=== PATIENT | female | born 1960 | race Caucasian/White ===

== ENCOUNTER 2019-07-06 20:08 | Observation (INO) ==
[2019-07-06 21:07] LABS: Basophils # 0.1 K/mcL (0.0-0.2); Basophils % 0.7 %; Eosinophils # 0.1 K/mcL (0.0-0.6); Eosinophils % 0.4 %; Hematocrit 42.2 % (35.3-44.9); Hemoglobin 14.2 g/dL (11.5-15.4); Immature Granulocytes % 0.4 % (0-4); Lymphocytes # 1.9 K/mcL (0.6-4.6); Lymphocytes % 15.2 %; Mean Corpuscular HGB Conc 33.6 g/dL (31.6-35.5); Mean Corpuscular Volume 86.1 fL (83.0-100.0); Mean Platelet Volume 9.7 fL (9.4-12.4); Monocytes # 1.2 K/mcL (0.0-1.3); Monocytes % 9.9 %; Neutrophils # 9.1 K/mcL (1.6-8.9); Platelet Count 239 K/mcL (140-400); Segmented Neutrophils % 73.4 %; White Blood Count 12.4 K/mcL (4.3-11.1)
[2019-07-06] MEDS ORDERED: Isovue-370 500 ML BOTTLE IVP ONE (21:26)
[2019-07-06 21:33] LABS: BUN/Creatinine Ratio 14 (6-26); Blood Urea Nitrogen 11 mg/dL (8-23); Calcium 9.1 mg/dL (8.6-10.3); Carbon Dioxide 24 mEq/L (23-29); Chloride 99 mEq/L (98-107); Glucose 155 mg/dL (70-105); Osmolality,Calculated 281 (280-300); Potassium 3.4 mEq/L (3.5-5.1); Sodium 134 mEq/L (136-145); Troponin I < 0.03 ng/mL (< 0.04); eGFR For African Americans > 60 (> 60); eGFR For Non-African Americans > 60 (> 60)
[2019-07-06] MEDS ORDERED: Ondansetron 4 MG/2 ML VIAL IVP ONE (22:42)
[2019-07-06] MEDS ORDERED: Morphine Sulfate 2 MG/ML SYRINGE IVP ONE (22:42)
[2019-07-06] MEDS ORDERED: *HR* Heparin 5,000 UNIT/ML VIAL IVP PRN (22:55)
[2019-07-06] MEDS ORDERED: *HR* Heparin 5,000 UNIT/ML VIAL IVP ONE (22:55)
[2019-07-06] MEDS: Heparin 25,000 UNIT/250 ML D5W 25,000 UNIT/250 ML IV.SOLN IVC SCH (23:16)
[2019-07-06 23:31] LABS: Heparin anti-factor XA UFH < 0.04 IU/mL (0.30-0.70); INR 1.1; Prothrombin Time 12.8 Seconds (9.4-12.1)
[2019-07-06 23:42] LABS: Hematocrit 41.5 % (35.3-44.9); Hemoglobin 14.1 g/dL (11.5-15.4); Mean Corpuscular Hemoglobin 28.9 pg (28.0-33.3); Mean Platelet Volume 9.5 fL (9.4-12.4); Platelet Count 226 K/mcL (140-400); Red Blood Count 4.88 M/mcL (3.82-4.97); White Blood Count 12.2 K/mcL (4.3-11.1)
[2019-07-06] MEDS ORDERED: Naloxone 0.4 MG/ML INJ IVP PRN (23:42)
[2019-07-07 05:43] LABS: Basophils % 0.2 %; Eosinophils # 0.1 K/mcL (0.0-0.6); Eosinophils % 0.5 %; Hematocrit 42.7 % (35.3-44.9); Immature Granulocytes % 0.4 % (0-4); Lymphocytes # 1.4 K/mcL (0.6-4.6); Lymphocytes % 11.7 %; Mean Corpuscular HGB Conc 32.8 g/dL (31.6-35.5); Mean Corpuscular Volume 88.4 fL (83.0-100.0); Mean Platelet Volume 9.6 fL (9.4-12.4); Monocytes # 1.1 K/mcL (0.0-1.3); Monocytes % 8.8 %; Neutrophils # 9.7 K/mcL (1.6-8.9); Platelet Count 207 K/mcL (140-400); Red Blood Count 4.83 M/mcL (3.82-4.97); Red Cell Distribution Width 12.9 % (11.5-14.5); Segmented Neutrophils % 78.4 %; White Blood Count 12.3 K/mcL (4.3-11.1)
[2019-07-07] MEDS: *HR* Heparin 5,000 UNIT/ML VIAL IVP PRN ×2 (05:58→17:48)
[2019-07-07 06:04] LABS: BUN/Creatinine Ratio 14 (6-26); Blood Urea Nitrogen 10 mg/dL (8-23); Calcium 9.2 mg/dL (8.6-10.3); Carbon Dioxide 25 mEq/L (23-29); Chloride 99 mEq/L (98-107); Glucose 106 mg/dL (70-105); Osmolality,Calculated 281 (280-300); Potassium 3.8 mEq/L (3.5-5.1); Sodium 136 mEq/L (136-145); eGFR For African Americans > 60 (> 60); eGFR For Non-African Americans > 60 (> 60)
[2019-07-07] MEDS: *HR* OxyCODONE/APAP 5/325 TABLET PO PRN ×3 (07:12→22:59)
[2019-07-07] MEDS ORDERED: 0.9 % Sodium Chloride 1,000 ML IVC ONE (10:35)
[2019-07-07] MEDS: 0.9 % Sodium Chloride 1,000 ML IVC SCH ×2 (14:31→22:59)
[2019-07-08 00:57] LABS: Basophils # 0.1 K/mcL (0.0-0.2); Basophils % 0.8 %; Eosinophils # 0.5 K/mcL (0.0-0.6); Hematocrit 37.8 % (35.3-44.9); Immature Granulocytes % 0.2 % (0-4); Lymphocytes # 1.8 K/mcL (0.6-4.6); Lymphocytes % 26.7 %; Mean Corpuscular HGB Conc 31.7 g/dL (31.6-35.5); Mean Corpuscular Hemoglobin 28.7 pg (28.0-33.3); Mean Corpuscular Volume 90.4 fL (83.0-100.0); Mean Platelet Volume 10.1 fL (9.4-12.4); Monocytes # 0.9 K/mcL (0.0-1.3); Monocytes % 13.1 %; Neutrophils # 3.4 K/mcL (1.6-8.9); Platelet Count 189 K/mcL (140-400); Red Blood Count 4.18 M/mcL (3.82-4.97); Segmented Neutrophils % 52.2 %; White Blood Count 6.6 K/mcL (4.3-11.1)
[2019-07-08 01:16] LABS: BUN/Creatinine Ratio 14 (6-26); Blood Urea Nitrogen 10 mg/dL (8-23); Calcium 8.5 mg/dL (8.6-10.3); Carbon Dioxide 26 mEq/L (23-29); Chloride 106 mEq/L (98-107); Glucose 96 mg/dL (70-105); Osmolality,Calculated 285 (280-300); Potassium 3.6 mEq/L (3.5-5.1); Sodium 138 mEq/L (136-145); eGFR For African Americans > 60 (> 60); eGFR For Non-African Americans > 60 (> 60)
[2019-07-08] MEDS: *HR* Heparin 5,000 UNIT/ML VIAL IVP PRN ×2 (01:37→06:53)
[2019-07-08] MEDS: Heparin 25,000 UNIT/250 ML D5W 25,000 UNIT/250 ML IV.SOLN IVC SCH (02:48)
[2019-07-08] MEDS ORDERED: Ondansetron ODT 4 MG TAB.RAPDIS SL PRN (05:09)
[2019-07-08] MEDS: *HR* OxyCODONE/APAP 5/325 TABLET PO PRN (06:35)
[2019-07-08] MEDS: 0.9 % Sodium Chloride 1,000 ML IVC SCH (08:34)
[2019-07-08] MEDS ORDERED: *HR* Rivaroxaban 15 MG TABLET PO SCH (09:00)
[2019-07-08 09:17] VITALS: BP 98/57
[2019-07-08] MEDS ORDERED: FLU Vac QV 19-20 (6Month+)/PF 0.5 ML SYRINGE IM ONE (09:36)
== END 2019-07-08 11:32 | disposition home or self-care (01) ==
LOC: 2ANU 20:08 → EMEROOARM 20:08 → 2ANU 23:35
PROVIDERS: ADMIT Student in an Organized Health Care Education/Training Program; ATTEND Student in an Organized Health Care Education/Training Program

== ENCOUNTER 2019-07-12 17:02 | Inpatient (IN) ==
[2019-07-12 18:14] LABS: Hematocrit 39.2 % (35.3-44.9); Hemoglobin 12.7 g/dL (11.5-15.4); Mean Corpuscular HGB Conc 32.4 g/dL (31.6-35.5); Mean Corpuscular Volume 86.3 fL (83.0-100.0); Mean Platelet Volume 8.7 fL (9.4-12.4); Platelet Count 306 K/mcL (140-400); Red Blood Count 4.54 M/mcL (3.82-4.97); Red Cell Distribution Width 12.7 % (11.5-14.5); White Blood Count 8.3 K/mcL (4.3-11.1)
[2019-07-12 18:29] LABS: BUN/Creatinine Ratio 15 (6-26); Blood Urea Nitrogen 10 mg/dL (8-23); Calcium 9.2 mg/dL (8.6-10.3); Carbon Dioxide 28 mEq/L (23-29); Chloride 101 mEq/L (98-107); Glucose 90 mg/dL (70-105); Osmolality,Calculated 285 (280-300); Potassium 3.6 mEq/L (3.5-5.1); Sodium 138 mEq/L (136-145); eGFR For African Americans > 60 (> 60); eGFR For Non-African Americans > 60 (> 60)
[2019-07-12] MEDS ORDERED: Gadolinium Contrast Agent (WT Based) IV PRN (18:50)
[2019-07-12 19:05] LABS: Bilirubin,Urine Negative (Negative); Blood,Urine Negative (Negative); Clarity,Urine Cloudy (Clear); Glucose,Urine (UA) Normal (Normal); Ketones,Urine Negative (Negative); Leukocyte Esterase,Urine Large (Negative); Nitrite,Urine Positive (Negative); Protein,Urine Negative (Neg-Trace); Specific Gravity,Urine 1.018 (1.010-1.025); Urobilinogen,Urine Normal (Normal)
[2019-07-12 19:07] LABS: Bacteria,Urine Many per hpf (None-Few); Hyaline Casts,Urine None Seen per lpf (None-Few); RBC,Urine 0-3 per hpf (0-3)
[2019-07-12 19:12] LABS: Color,Urine Yellow (Yellow)
[2019-07-12 19:41] LABS: Squamous Epithelial Cell,Urine Few per lpf (None-Few)
[2019-07-12] MEDS ORDERED: 0.9 % Sodium Chloride 1,000 ML IVC ONE (21:06)
[2019-07-12] MEDS ORDERED: Ondansetron 4 MG/2 ML VIAL IVP ONE (21:06)
[2019-07-12] MEDS ORDERED: *HR* HYDROmorphone 2 MG/ML SYRINGE IVP ONE (21:11)
[2019-07-12] MEDS ORDERED: *HR* HYDROmorphone (PF) 1 MG/ML SYRINGE IVP ONE (21:30)
[2019-07-12] MEDS ORDERED: cefTRIAXone 1,000 MG in Water for inj. (sterile) 10 ML IVPB STA (23:17)
[2019-07-13] MEDS ORDERED: *HR* HYDROmorphone (PF) 1 MG/ML SYRINGE IVP ONE (01:42)
[2019-07-13] MEDS ORDERED: Ketamine *HR* 15 MG in 0.9 % Sodium Chloride 100 ML IVPB ONE (01:43)
[2019-07-13] MEDS ORDERED: Ondansetron 4 MG/2 ML VIAL IVP STA (01:44)
[2019-07-13] MEDS ORDERED: Ondansetron 4 MG/2 ML VIAL IVP PRN (03:29)
[2019-07-13] MEDS ORDERED: Acetaminophen 325 MG TABLET PO PRN (03:29)
[2019-07-13] MEDS ORDERED: Naloxone 0.4 MG/ML INJ IVP PRN (03:29)
[2019-07-13] MEDS: Ipratropium/Albuterol Neb 3 ML IH SCH ×5 (04:24→19:49)
[2019-07-13] MEDS: 0.9 % Sodium Chloride 1,000 ML IVC SCH ×2 (04:41→13:05)
[2019-07-13] MEDS ORDERED: *HR* Promethazine 25 MG/ML VIAL IVP ONE ×2 (04:52→07:10)
[2019-07-13 06:14] LABS: Basophils # 0.1 K/mcL (0.0-0.2); Basophils % 0.8 %; Eosinophils # 0.3 K/mcL (0.0-0.6); Eosinophils % 2.6 %; Hematocrit 38.4 % (35.3-44.9); Hemoglobin 12.5 g/dL (11.5-15.4); Immature Granulocytes % 0.4 % (0-4); Lymphocytes # 1.3 K/mcL (0.6-4.6); Lymphocytes % 13.8 %; Mean Corpuscular HGB Conc 32.6 g/dL (31.6-35.5); Mean Corpuscular Hemoglobin 28.5 pg (28.0-33.3); Mean Corpuscular Volume 87.7 fL (83.0-100.0); Monocytes % 10.4 %; Platelet Count 288 K/mcL (140-400); Red Blood Count 4.38 M/mcL (3.82-4.97); Red Cell Distribution Width 12.6 % (11.5-14.5); White Blood Count 9.7 K/mcL (4.3-11.1)
[2019-07-13 07:42] LABS: Bilirubin,Urine Negative (Negative); Blood,Urine Trace-intact (Negative); Clarity,Urine Clear (Clear); Color,Urine Yellow (Yellow); Glucose,Urine (UA) Normal (Normal); Ketones,Urine 15 mg/dL (Negative); Leukocyte Esterase,Urine Small (Negative); Nitrite,Urine Positive (Negative); PH,Urine 6.5 pH Units (5.0-8.0); Protein,Urine 30 mg/dL (Neg-Trace); Specific Gravity,Urine 1.025 (1.010-1.025); Urobilinogen,Urine Normal (Normal)
[2019-07-13 07:43] LABS: Bacteria,Urine None Seen per hpf (None-Few); Hyaline Casts,Urine Moderate per lpf (None-Few); Squamous Epithelial Cell,Urine Many per lpf (None-Few); WBC,Urine 50-100 per hpf (0-3)
[2019-07-13] MEDS: cefTRIAXone 1,000 MG in 0.9 % Sodium Chloride Mini Bag 100 ML IVPB SCH (08:21)
[2019-07-13 09:27] LABS: Alanine Aminotransferase 10 Units/L (7-52); Albumin 3.3 g/dL (3.5-5.7); Alkaline Phosphatase 90 Units/L (34-104); Aspartate Amino Transferase 13 Units/L (13-39); BUN/Creatinine Ratio 15 (6-26); Bilirubin,Total 0.4 mg/dL (0.3-1.0); Blood Urea Nitrogen 9 mg/dL (8-23); Calcium 8.8 mg/dL (8.6-10.3); Carbon Dioxide 26 mEq/L (23-29); Chloride 103 mEq/L (98-107); Globulin 3.2 g/dL (2.4-3.5); Glucose 85 mg/dL (70-105); Osmolality,Calculated 286 (280-300); Phosphorous 4.1 mg/dL (2.7-4.5); Potassium 3.4 mEq/L (3.5-5.1); Sodium 139 mEq/L (136-145); Total Protein 6.5 g/dL (6.4-8.9); eGFR For African Americans > 60 (> 60); eGFR For Non-African Americans > 60 (> 60)
[2019-07-13] MEDS ORDERED: Loratadine 10 MG TABLET PO PRN (11:01)
[2019-07-13] MEDS ORDERED: *HR* Rivaroxaban 10 MG TABLET PO SCH (11:15)
[2019-07-13] MEDS: *HR* OxyCODONE/APAP 5/325 TABLET PO PRN ×2 (14:18→21:29)
[2019-07-13] MEDS ORDERED: Gadolinium Contrast Agent (WT Based) IV PRN (15:53)
[2019-07-13] MEDS: *HR* Rivaroxaban 15 MG TABLET PO SCH (21:29)
[2019-07-14] MEDS: Ipratropium/Albuterol Neb 3 ML IH SCH ×7 (00:28→23:55)
[2019-07-14] MEDS: *HR* OxyCODONE/APAP 5/325 TABLET PO PRN ×3 (07:37→23:25)
[2019-07-14] MEDS: *HR* Rivaroxaban 15 MG TABLET PO SCH ×2 (09:15→19:55)
[2019-07-14] MEDS: cefTRIAXone 1,000 MG in 0.9 % Sodium Chloride Mini Bag 100 ML IVPB SCH (09:20)
[2019-07-15 01:34] LABS: BUN/Creatinine Ratio 17 (6-26); Blood Urea Nitrogen 12 mg/dL (8-23); Calcium 9.2 mg/dL (8.6-10.3); Carbon Dioxide 29 mEq/L (23-29); Chloride 100 mEq/L (98-107); Glucose 100 mg/dL (70-105); Magnesium 2.1 mg/dL (1.6-2.6); Osmolality,Calculated 284 (280-300); Potassium 3.7 mEq/L (3.5-5.1); Sodium 137 mEq/L (136-145); eGFR For African Americans > 60 (> 60); eGFR For Non-African Americans > 60 (> 60)
[2019-07-15] MEDS: Ipratropium/Albuterol Neb 3 ML IH SCH ×6 (03:54→23:22)
[2019-07-15] MEDS: *HR* Rivaroxaban 15 MG TABLET PO SCH ×2 (07:35→20:02)
[2019-07-15] MEDS: cefTRIAXone 1,000 MG in 0.9 % Sodium Chloride Mini Bag 100 ML IVPB SCH (07:35)
[2019-07-15] MEDS: *HR* OxyCODONE/APAP 5/325 TABLET PO PRN ×2 (07:35→17:07)
[2019-07-15] MEDS: Tetrahydrozoline 15 ML BOTTLE RIGHT EYE PRN ×2 (13:51→20:00)
[2019-07-16] MEDS: Ipratropium/Albuterol Neb 3 ML IH SCH ×3 (03:30→11:28)
[2019-07-16] MEDS: *HR* OxyCODONE/APAP 5/325 TABLET PO PRN ×2 (04:16→12:21)
[2019-07-16] MEDS: *HR* Rivaroxaban 15 MG TABLET PO SCH (08:21)
[2019-07-16] MEDS: cefTRIAXone 1,000 MG in 0.9 % Sodium Chloride Mini Bag 100 ML IVPB SCH (08:22)
[2019-07-16 10:32] VITALS: BP 111/67
[2019-07-16] MEDS ORDERED: Ciprofloxacin HCL Soln 5 ML BOTTLE RIGHT EYE SCH (12:00)
== END 2019-07-16 13:06 | DRG 690 ==
LOC: 3NENU 17:02 → EMEROOARM 17:02 → 3NENU 07-13 03:41
PROVIDERS: ADMIT Internal Medicine; ATTEND Internal Medicine